=== PATIENT | female | born 1990 | race Hispanic/Latino ===

== ENCOUNTER 2024-05-12 13:04 | Emergency (ER) | payer BC ==
[~2024-05-12] VITALS: Ht 154.9 cm; Wt 63.5 kg
[2024-05-12 14:08] LABS: APPEARANCE,URINE CLEAR (CLEAR); BILIRUBIN,URINE NEGATIVE (NEGATIVE); COLOR,URINE LIGHT-YELLOW (YELLOW); GLUCOSE, URINE (UA) NEGATIVE (NEGATIVE); KETONES,URINE NEGATIVE (NEGATIVE); LEUKOCYTE ESTERASE ,URINE NEGATIVE Leu/uL (NEGATIVE); NITRATE,URINE NEGATIVE (NEGATIVE); OCCULT BLOOD,URINE SMALL (NEGATIVE); PROTEIN,URINE NEGATIVE (NEGATIVE); UROBILINOGEN,URINE 0.2 mg/dL (0.2-1.0)
[2024-05-12 14:10] LABS: HCG,QUALITATIVE URINE NEGATIVE (NEGATIVE)
--- NOTE | 2024-05-12 14:18 | ERN ---
ED Note History of Present Illness Stated Complaint: FEVER Chief Complaint: Sexually Transmitted Disease Time Seen by MD: 13:09 Time Seen by Midlevel: 13:09 Dictation: The patient is a 33-year-old female with no past medical history who presents to the emergency department with complaints of sore throat, chills onset Saturday. Patient reports that she feels her who body hot and does not know she had fevers. Reports some nasal congestion. Denies any cough. Patient also reports that she had sexual intercourse on Saturday without any protection and was concerned for an STI but denies any vaginal bleeding or discharge patient denies any nausea or vomiting, Abdominal Pain. Allergies: Coded Allergies: No Known Drug Allergies (Unverified Allergy, Unknown, 05/12/24) Home Meds Active Scripts Doxycycline Hyclate (Doxycycline Hyclate) 100 Mg Tablet, 1 TAB PO BID for 7 Days, #14 TAB 0 Refills Prov:IRAIS SERVIN [employer]ODUCER 05/12/24 Past Medical History Past Medical History: No Pertinent History Surgical History: None LMP: May 05, 2024 : 0 RN Note Reviewed/Agreed w/PFSH: Yes Review of System Dictation Constitutional: Negative for fever, and weight loss positive for chills Eyes: Negative for injury, pain,redness, and discharge ENT: Negative for injury,pain or swelling positive for sore throat Cardiovascular: Negative for chest pain, palpitations, and edema Respiratory: Negative for shortness of breath, cough, and wheezing, Abdomen/GI: Negative for abdominal pain, nausea, vomiting, diarrhea, and constipation Back: Negative for injury and pain : Negative for injury, bleeding and discharge MS/Extremity: Negative for injury and deformity Skin: Negative for rash, and discoloration Neuro: Negative for headache, weakness, numbness, tingling, and seizure Psych: Negative for suicide ideation, homicidal ideation, and hallucinations Initial Vital Sign VS Vital Signs Date Time Temp Pulse Resp B/P (MAP) Pulse Ox O2 Delivery O2 Flow Rate FiO2 05/12/24 13:36 98.8 91 20 121/73 99 Room Air 0 05/12/24 15:26 21 Physical Exam Dictation Vital Signs reviewed General Appearance: Alert, oriented x 3, no acute distress, well developed, nourished. Head and Face: non-traumatic. Eyes: PERRL, pink conjunctivas, eyelid no trauma, anterior chamber with arcus senilis. Ears: Pinnas intact and no signs of trauma or erythema ear canals clear and no discharge TM no erythema Nose: No discharge, no bleeding. Oropharynx: Mouth normal, tongue pink. pharynx clear,no erythema, tonsils no exudates, no abscesses noted, mucous membrane moist Neck: Supple, non-tender, no thyromegaly, no masses, no JVD, no bruits Breast:Deferred Chest:No tenderness, no crepitus, no paradoxical movement, no retractions Lungs:Clear, well-ventilated, symmetric, no rales, no wheezing, no rhonchi, no stridor, good breath sounds bilaterally Heart: Regular rate, regular rhythm, no murmur, no gallops Vascular: no peripheral edema, Abdomen: Soft, positive bowel sounds, nondistended, no guarding, nontender, no rebound, no masses no hepatomegaly, no splenomegaly, no Maddox's sign, no hernias. Rectal: Deferred Genital: Deferred Neurological: Normal speech, motor function intact, sensory function intact Musculoskeletal: Neck nontender, full range of motion, back nontender, full range of motion, Extremities: nontender, full range of motion Skin: Color pink, dry, no turgor, no rash, no lacerations, no abrasions, no contusions. Lymphatic: Deferred Results (Laboratory/Radiology) Laboratory/Radiology Laboratory Tests Test 05/12/24 13:46 05/12/24 13:59 05/12/24 15:11 Urine Color LIGHT-YELLOW (YELLOW) Urine Appearance CLEAR (CLEAR) Urine pH 5.0 (5.0-8.0) Urine Specific [place] 1.012 (1.001-1.031) Urine Protein NEGATIVE mg/dL (NEGATIVE) Urine Glucose (UA) NEGATIVE mg/dL (NEGATIVE) Urine Ketones NEGATIVE mg/dL (NEGATIVE) Urine Occult Blood SMALL (NEGATIVE) H Urine Nitrate NEGATIVE (NEGATIVE) Urine Bilirubin NEGATIVE mg/dL (NEGATIVE) Urine Urobilinogen 0.2 mg/dL (0.2-1.0) Urine Leukocyte Esterase NEGATIVE Breanna/uL Urine RBC 0-1 /HPF (0-1) Urine WBC 2-5 /HPF (0-1) H Urine Squamous Epithelial Cells RARE /HPF (0-2) Urine Bacteria None /HPF (None Seen) Urine HCG, Qualitative NEGATIVE (NEGATIVE) Influenza Type A Antigen Negative For Type A Influenza Type B Antigen Negative For Type B SARS-CoV-2 Antigen (Rapid) PRESUMPTIVE NEGATIVE Group A Streptococcus Rapid negative (NEGATIVE) Labs Reviewed?: Yes ED Course ED Course Orders Procedure Category Date Status Time Influenza Type A & B, LAB 05/12/24 Complete Rapid 13:29 Covid19 (Sars Antigen LAB 05/12/24 Complete Rapid) 13:29 Urinalysis Profile LAB 05/12/24 Complete 13:29 ,Urine Test LAB 05/12/24 Complete 13:29 Chlamydia & Gc Pcr APOORVA 05/12/24 Complete 13:29 Ceftriaxone 1g Vial PHA 05/12/24 Complete (Rocephine 1g Inj) 14:00 Rapid (Group A Strep) LAB 05/12/24 Complete 14:01 Ceftriaxone 1g Vial PHA 05/12/24 Complete (Rocephine 1g Inj) 15:33 Current Medications Medications (Trade) Dose Ordered Sig/Inna Route PRN Reason Start Time Stop Time Status Last Admin Dose Admin Ceftriaxone Sodium (ROCEphine 1G INJ) 1 gm ONCE ONCE IM 05/12/24 14:00 05/12/24 14:41 DC 05/12/24 15:36 Ceftriaxone Sodium (ROCEphine 1G INJ) 1 gm STK-MED ONCE .ROUTE 05/12/24 15:33 05/12/24 15:33 DC Vital Signs Date Time Temp Pulse Resp B/P (MAP) Pulse Ox O2 Delivery O2 Flow Rate FiO2 05/12/24 15:26 98.8 88 20 118/72 98 Room Air* 0 21 05/12/24 13:36 98.8 91 20 121/73 99 Room Air 0 Medical Decision Making MDM The patient is a 33-year-old female with no past medical history who presents to the emergency department with complaints of sore throat, chills onset Saturday. Patient reports that she feels her who body hot and does not know she had fevers. Reports some nasal congestion. Denies any cough. Patient also reports that she had sexual intercourse on Saturday without any protection and was concerned for an STI but denies any vaginal bleeding or discharge patient denies any nausea or vomiting, Abdominal Pain. Serology negative. Urinalysis with no leukocyte esterase. Patient will be treated for STD and instructed to follow up with PCP for further evaluation. Patient no acute distress, nontender abdomen. Differential diagnosis: Strep throat, pharyngitis, influenza, STI, UTI Need for hospitalization: Patient does not meet criteria for hospitalization. There are no social concerns with this patient. DX & DISP Disposition: Discharge Departure Impression: Primary Impression: Sore throat Additional Impression: Possible exposure to STD Condition: Stable Scripts Doxycycline Hyclate (Doxycycline Hyclate) 100 Mg Tablet 1 TAB PO BID for 7 Days, #14 TAB 0 Refills Prov: IRAIS SERVIN 05/12/24 Additional Instructions: Please follow up with your primary doctor in 1-2 days. You to follow up on your culture results. Talk to your primary doctor for full STD panel . Take medications as prescribed. If symptoms worsen please return to ER. FOLLOW-UP WITH PRIMARY CARE PROVIDER IN 1 TO 2 DAYS. TAKE MEDICATIONS DIRECTED HERE IN THE EMERGENCY ROOM. OKAY TO CONTINUE HOME MEDICATIONS UNLESS OTHERWISE DISCUSSED DURING YOUR VISIT IN THE EMERGENCY ROOM TODAY. RETURN TO YOUR NEAREST EMERGENCY ROOM IF SYMPTOMS WORSEN OR IF THERE IS NO IMPROVEMENT. CALL 911 IF YOU NEED IMMEDIATE ASSISTANCE. TAKE TYLENOL OR MOTRIN [id number] NEEDED AND IF NO CONTRAINDICATIONS ARE PRESENT. INCREASE ORAL HYDRATION. A WOUND CULTURE OR URINE CULTURE WAS ORDERED HERE IN THE EMERGENCY ROOM DEPARTMENT PLEASE FOLLOW-UP WITH PRIMARY CARE PROVIDER AND ADVISE THEM TO GET REPEAT PORTS FROM OUR FACILITY. IF YOU HAD ANY DALLIN WRAP/SPLINTS THAT WERE APPLIED HERE, PLEASE DO NOT REMOVE THEM UNTIL YOU SEE YOUR PRIMARY CARE OR SPECIALTY. Referrals: SELF,REFERRAL (PCP) Time of Disposition: 15:23 I have reviewed the case, and I agree with, Diagnosis and Plan IRAIS SERVIN May 12, 2024 14:18 CLAUDETTE HORVATH DO May 14, 2024 08:20
[2024-05-12 14:23] LABS: COVID19 (SARS ANTIGEN RAPID) PRESUMPTIVE NEGATIVE (NEGATIVE); INFLUENZA TYPE A Negative For Type A (NEGATIVE); INFLUENZA TYPE B Negative For Type B (NEGATIVE)
[2024-05-12 14:25] LABS: ADD UA MICROSCOPIC YES
[2024-05-12 14:27] LABS: MUCUS,URINE RARE LPF (None Seen); RBC,URINE 0-1 /HPF (0-1); SQUAMOUS EPITHELIAL CELL,UR RARE /HPF (0-2)
[2024-05-12] MEDS ORDERED: DOXY100T2 PO (15:24)
[2024-05-12 15:26] VITALS: BP 118/72; PULSE 88; RESP 20; TEMP 98.8; O2SAT 98
[2024-05-12] MEDS: cefTRIAXone 1G VIAL IM ONE (15:36)
[2024-05-12] MEDS: cefTRIAXone 1G VIAL ONE (15:37)
== END 2024-05-12 15:37 | disposition home or self-care (01) ==
LOC: EEVIPCON 13:04 → EDH 13:04
DX: J02.9 Acute pharyngitis, unspecified (principal); Z20.822 Contact with and (suspected) exposure to COVID-19
CPT/HCPCS: 99284; 87426; 87880; 87804 ×2; 87491; 87591; 81001; 81025; 96372; J0696